=== PATIENT | male | born 1960 | race Caucasian/White ===

== ENCOUNTER 2025-04-11 19:44 | Emergency (ER) | payer OTHER ==
[~2025-04-11] VITALS: Ht 167.6 cm; Wt 82.6 kg
[2025-04-11 19:58] VITALS: BP 156/91
[2025-04-11 20:06] LABS: PLATELET COUNT (AUTO) 161 K/uL (152-348); RED BLOOD CELL COUNT(AUTO) 4.87 MIL/uL (4.06-5.63); RED CELL DISTRIBUTION WIDTH 13.4 % (12.1-16.2); WHITE BLOOD COUNT (AUTO) 12.5 K/uL (3.6-10.2)
[2025-04-11] MEDS ORDERED: SEMA0.253 (20:09)
[2025-04-11] MEDS ORDERED: MORPHINE SULFATE 2 MG/1 ML DISP.SYRIN ONE (20:14)
[2025-04-11] MEDS ORDERED: ONDANSETRON 4 MG/2 ML VIAL ONE (20:14)
[2025-04-11] MEDS: MORPHINE SULFATE 2 MG/1 ML DISP.SYRIN IV ONE (20:17)
[2025-04-11] MEDS: ONDANSETRON 4 MG/2 ML VIAL IV ONE (20:17)
[2025-04-11 20:21] LABS: CREATININE 1.7 mg/dL (0.6-1.3); SODIUM SERUM 140.0 mmol/L (136-145); UREA NITROGEN, BLOOD 24.0 mg/dL (7-18)
[2025-04-11 20:26] LABS: ASPARTATE AMINOTRANSFERASE 73.0 U/L (15-37); TOTAL PROTEIN, SERUM 7.9 g/dL (6.4-8.2)
[2025-04-11] MEDS ORDERED: KETOROLAC TROMETHAMINE 30 MG INJ ONE (21:04)
[2025-04-11] MEDS: KETOROLAC TROMETHAMINE 30 MG INJ IVP ONE (21:06)
[2025-04-11 21:36] LABS: *BILIRUBIN,URIN NEGATIVE (NEGATIVE); *CLARITY,URINE CLEAR (CLEAR); *COLOR,URINE YELLOW (YELLOW); *KETONES,URINE 3+ (NEGATIVE); *PROTEIN,URINE NEGATIVE (NEGATIVE); *UROBILINOGEN,URINE 0.2 E.U./dl (NORMAL); LEUKOCYTE ESTERASE ,URINE NEGATIVE (NEGATIVE); NITRITE, URINE NEGATIVE (NEGATIVE); UGLUCOSE NEGATIVE (NEGATIVE)
[2025-04-11 21:43] LABS: *BLOOD, URINE TRACE (NEGATIVE)
[2025-04-11 21:58] LABS: SQUAMOUS EPITHELIAL CELL,UR FEW /HPF (NONE SEEN)
[2025-04-11] MEDS ORDERED: KETO10TA2 PO (22:35)
[2025-04-11 23:02] VITALS: BP 150/89; O2SAT 97
== END 2025-04-11 22:44 | disposition home or self-care (01) ==
LOC: ER 19:46
DX: R10.32 Left lower quadrant pain (principal); R06.02 Shortness of breath
CPT/HCPCS: 99285; 74176; 96374; 96375; 71045; 80053; 81001; 83880; 85025; 87040; 84484; 36415; 93005; 83605; J1885; J2405; J2270; A4606; A4663